=== PATIENT | female | born 1965 | race African-American/Black ===

== ENCOUNTER 2020-03-06 10:36 | Inpatient (IN) ==
[2020-03-06] MEDS ORDERED: MAGNESIUM SULF RIDER 2 GM in PREMIX 1 EACH IV ONE (13:20)
[2020-03-06] MEDS ORDERED: ALUMINUM/MAGNES/SIMETH MAX STR 30 ML UDCUP PO PRN (13:21)
[2020-03-06] MEDS ORDERED: SIMETHICONE CHEW 125 MG TABLET PO PRN (13:21)
[2020-03-06] MEDS ORDERED: ONDANSETRON 4 MG/2 ML VIAL IV PRN (13:21)
[2020-03-06] MEDS ORDERED: GLUCAGON 1 MG VIAL IM PRN (13:21)
[2020-03-06] MEDS ORDERED: DEXTROSE 10% 250 ML BAG IV PRN (13:21)
[2020-03-06] MEDS: SODIUM CHLORIDE 0.9% 1,000 ML IV SCH ×2 (13:32→23:36)
[2020-03-06] MEDS ORDERED: LOSARTAN 50 MG TABLET PO SCH (14:00)
[2020-03-06] MEDS ORDERED: MAGNESIUM SULF RIDER 4 GM in PREMIX 1 EACH IV PRN (15:16)
[2020-03-06] MEDS: carvediloL 3.125 MG TABLET PO SCH ×2 (15:58→20:48)
[2020-03-06] MEDS: ENOXAPARIN 100 MG/ML SYRINGE SUBCUT SCH (15:58)
[2020-03-06] MEDS: HYDROXYCHLOROQUINE 200 MG TABLET PO SCH (15:58)
[2020-03-06] MEDS: INSULIN LISPRO 100 UNIT/ML SUBCUT SCH ×2 (16:00→20:39)
[2020-03-06] MEDS ORDERED: LOSARTAN 50 MG TABLET PO ONE (16:00)
[2020-03-06 16:27] LABS: Calcium 8.2 MG/DL (8.5-10.1)
[2020-03-06 16:31] LABS: CKMB % 2.7 %
[2020-03-06 16:36] LABS: Troponin I 8.88 NG/ML (0.00-0.045)
[2020-03-06] MEDS: traMADol 50 MG TABLET PO SCH ×2 (17:01→23:39)
[2020-03-06] MEDS: ROSUVASTATIN 20 MG TABLET PO SCH (20:49)
[2020-03-06] MEDS ORDERED: ENOXAPARIN 40 MG/0.4 ML SYRINGE SUBCUT SCH (21:00)
[2020-03-06] MEDS ORDERED: ROSUVASTATIN 20 MG TABLET PO SCH (21:00)
[2020-03-07 05:28] LABS: Basophils % 0.6 % (0.0-0.8); Eosinophils # 0.1 10*3/uL (0.0-0.87); Eosinophils % 1.9 % (0.00-10.9); Hematocrit 42.4 VOL% (35.7-47.0); Immature Granulocytes % 0.4 %; Immature Granulocytes Absolute 0.03 #; Lymphocytes # 2.3 10*3/uL (1.4-4.0); Lymphocytes % 33.9 % (21.3-54.2); Mean Platelet Volume 9.3 FL (9.6-12.0); Monocytes % 10.3 % (1.7-12.7); Neutrophils % 52.9 % (38.7-73.9); Platelet Count 302 T/CUMM (130-400); Red Blood Count 4.71 MC/CUMM (3.8-5.5); Red Cell Distribution Width 12.4 % (9.3-17.3); White Blood Count 6.9 T/CUMM (4-12)
[2020-03-07 05:57] LABS: Albumin 2.2 G/DL (3.4-5.0); Bilirubin,Total 0.6 MG/DL (0.2-1.0); Calcium 8.4 MG/DL (8.5-10.1); Osmolality,Calculated 277.8 MOS/KG (273-304); Total Protein 6.5 G/DL (6.4-8.3)
[2020-03-07] MEDS: traMADol 50 MG TABLET PO SCH ×3 (05:57→18:50)
[2020-03-07 06:11] LABS: Risk Ratio 7.38; VLDL CHOLESTEROL 35.6 MG/DL
[2020-03-07] MEDS ORDERED: SODIUM CHLORIDE 0.9% 1,000 ML IV PRN (07:20)
[2020-03-07] MEDS ORDERED: INSULIN DETEMIR 100 UNIT/ML SUBCUT SCH (08:00)
[2020-03-07] MEDS: POTASSIUM CHLORIDE 20 MEQ TABLET PO PRN (09:00)
[2020-03-07] MEDS: SODIUM CHLORIDE 0.9% 1,000 ML IV SCH (09:31)
[2020-03-07] MEDS: INSULIN GLARGINE 100 UNIT/ML SUBCUT SCH (09:40)
[2020-03-07] MEDS: ASPIRIN EC 81 MG TABLET PO SCH (09:40)
[2020-03-07] MEDS: INSULIN LISPRO 100 UNIT/ML SUBCUT SCH ×4 (09:40→21:29)
[2020-03-07] MEDS: PANTOPRAZOLE 40 MG TABLET PO SCH (09:41)
[2020-03-07] MEDS: LOSARTAN 50 MG TABLET PO SCH (09:41)
[2020-03-07] MEDS: carvediloL 3.125 MG TABLET PO SCH ×2 (09:41→21:12)
[2020-03-07] MEDS: HYDROXYCHLOROQUINE 200 MG TABLET PO SCH ×2 (09:41→21:12)
[2020-03-07] MEDS: ENOXAPARIN 100 MG/ML SYRINGE SUBCUT SCH ×2 (09:41→21:29)
[2020-03-07] MEDS ORDERED: NITROGLYCERIN SL 0.4 MG TABLET SL PRN (10:27)
[2020-03-07] MEDS ORDERED: carvediloL 3.125 MG TABLET PO ONE (10:28)
[2020-03-07] MEDS ORDERED: ACETAMINOPHEN 325 MG TABLET PO ONE (15:41)
[2020-03-07] MEDS ORDERED: diphenhydrAMINE CAP 25 MG CAPSULE PO ONE (15:42)
[2020-03-07] MEDS: ROSUVASTATIN 20 MG TABLET PO SCH (21:11)
[2020-03-08] MEDS: traMADol 50 MG TABLET PO SCH ×5 (00:20→23:59)
[2020-03-08] MEDS: SODIUM CHLORIDE 0.9% 1,000 ML IV SCH ×3 (06:20→17:01)
[2020-03-08 06:59] LABS: Basophils % 0.5 % (0.0-0.8); Eosinophils # 0.2 10*3/uL (0.0-0.87); Eosinophils % 2.6 % (0.00-10.9); Hematocrit 39.8 VOL% (35.7-47.0); Hemoglobin 12.8 GM/DL (12.0-16.0); Immature Granulocytes % 0.5 %; Immature Granulocytes Absolute 0.03 #; Lymphocytes # 2.2 10*3/uL (1.4-4.0); Lymphocytes % 38.5 % (21.3-54.2); Mean Corpuscular HGB Conc 32.2 GM/DL (32-36); Mean Corpuscular Volume 90.9 FL (87-102); Mean Platelet Volume 9.6 FL (9.6-12.0); Monocytes % 9.8 % (1.7-12.7); Neutrophils % 48.1 % (38.7-73.9); Platelet Count 313 T/CUMM (130-400); Red Blood Count 4.38 MC/CUMM (3.8-5.5); Red Cell Distribution Width 12.4 % (9.3-17.3); White Blood Count 5.7 T/CUMM (4-12)
[2020-03-08 07:39] LABS: Albumin 2.2 G/DL (3.4-5.0); Bilirubin,Total 0.7 MG/DL (0.2-1.0); Calcium 8.3 MG/DL (8.5-10.1); Osmolality,Calculated 279.5 MOS/KG (273-304); Total Protein 6.2 G/DL (6.4-8.3)
[2020-03-08] MEDS: PANTOPRAZOLE 40 MG TABLET PO SCH (08:26)
[2020-03-08] MEDS: HYDROXYCHLOROQUINE 200 MG TABLET PO SCH ×2 (08:26→20:43)
[2020-03-08] MEDS: LOSARTAN 50 MG TABLET PO SCH (08:27)
[2020-03-08] MEDS: carvediloL 3.125 MG TABLET PO SCH ×2 (08:27→20:43)
[2020-03-08] MEDS: ASPIRIN EC 81 MG TABLET PO SCH (08:27)
[2020-03-08] MEDS: ENOXAPARIN 100 MG/ML SYRINGE SUBCUT SCH ×2 (09:40→20:43)
[2020-03-08 11:42] LABS: Ferritin 165.8 ng/ml (8-252)
[2020-03-08] MEDS: INSULIN LISPRO 100 UNIT/ML SUBCUT SCH ×3 (14:10→21:08)
[2020-03-08] MEDS: INSULIN GLARGINE 100 UNIT/ML SUBCUT SCH (14:11)
[2020-03-08] MEDS: ROSUVASTATIN 20 MG TABLET PO SCH (20:43)
[2020-03-08] MEDS: POTASSIUM CHLORIDE 20 MEQ TABLET PO PRN (20:43)
[2020-03-08] MEDS: hydrALAZINE 20 MG/1 ML VIAL IV PRN (23:59)
[2020-03-09] MEDS: SODIUM CHLORIDE 0.9% 1,000 ML IV SCH (02:14)
[2020-03-09] MEDS: traMADol 50 MG TABLET PO SCH ×3 (06:01→17:19)
[2020-03-09 06:25] LABS: Calcium 8.1 MG/DL (8.5-10.1); Osmolality,Calculated 277.4 MOS/KG (273-304)
[2020-03-09] MEDS ORDERED: LOSARTAN 50 MG TABLET PO SCH ×2 (07:29→11:23)
[2020-03-09] MEDS: POTASSIUM CHLORIDE 20 MEQ TABLET PO PRN ×3 (08:49→16:49)
[2020-03-09] MEDS: ASPIRIN EC 81 MG TABLET PO SCH (08:49)
[2020-03-09] MEDS: MAGNESIUM SULF RIDER 2 GM in PREMIX 1 EACH IV PRN (08:49)
[2020-03-09] MEDS: ENOXAPARIN 100 MG/ML SYRINGE SUBCUT SCH ×2 (08:49→21:08)
[2020-03-09] MEDS: carvediloL 3.125 MG TABLET PO SCH ×2 (08:49→21:08)
[2020-03-09] MEDS: PANTOPRAZOLE 40 MG TABLET PO SCH (08:49)
[2020-03-09] MEDS: HYDROXYCHLOROQUINE 200 MG TABLET PO SCH ×2 (08:49→21:05)
[2020-03-09] MEDS: INSULIN GLARGINE 100 UNIT/ML SUBCUT SCH (09:11)
[2020-03-09] MEDS: INSULIN LISPRO 100 UNIT/ML SUBCUT SCH ×4 (09:11→20:57)
[2020-03-09] MEDS ORDERED: LOSARTAN 25 MG TABLET PO ONE (11:24)
[2020-03-09] MEDS: hydrALAZINE 20 MG/1 ML VIAL IV PRN ×2 (11:24→16:24)
[2020-03-09] MEDS ORDERED: MORPHINE 4 MG/1 ML VIAL IV PRN (13:32)
[2020-03-09] MEDS ORDERED: ALUM/MAG/SIMETH/LIDO VISC 1:1 30 ML BOTTLE PO ONE (13:39)
[2020-03-09] MEDS: amLODIPine 5 MG TABLET PO SCH (14:05)
[2020-03-09] MEDS ORDERED: diphenhydrAMINE CAP 25 MG CAPSULE PO PRN (14:08)
[2020-03-09] MEDS: NITROGLYCERIN 2% OINT 1 INCH/GM PACK TOP SCH (17:18)
[2020-03-09] MEDS: ROSUVASTATIN 20 MG TABLET PO SCH (21:07)
[2020-03-10] MEDS: NITROGLYCERIN 2% OINT 1 INCH/GM PACK TOP SCH ×4 (00:11→17:00)
[2020-03-10] MEDS: traMADol 50 MG TABLET PO SCH ×4 (00:11→17:00)
[2020-03-10 06:58] LABS: Basophils % 0.7 % (0.0-0.8); Eosinophils # 0.1 10*3/uL (0.0-0.87); Eosinophils % 1.9 % (0.00-10.9); Hematocrit 42.6 VOL% (35.7-47.0); Immature Granulocytes % 0.3 %; Immature Granulocytes Absolute 0.02 #; Lymphocytes # 2.3 10*3/uL (1.4-4.0); Lymphocytes % 38.6 % (21.3-54.2); Mean Corpuscular HGB Conc 32.9 GM/DL (32-36); Mean Corpuscular Volume 89.7 FL (87-102); Mean Platelet Volume 9.6 FL (9.6-12.0); Monocytes % 9.6 % (1.7-12.7); Neutrophils % 48.9 % (38.7-73.9); Platelet Count 364 T/CUMM (130-400); Red Blood Count 4.75 MC/CUMM (3.8-5.5); Red Cell Distribution Width 12.1 % (9.3-17.3); White Blood Count 5.9 T/CUMM (4-12)
[2020-03-10 07:12] LABS: Calcium 8.1 MG/DL (8.5-10.1)
[2020-03-10] MEDS: INSULIN LISPRO 100 UNIT/ML SUBCUT SCH ×5 (08:43→23:30)
[2020-03-10] MEDS ORDERED: ENOXAPARIN 100 MG/ML SYRINGE SUBCUT SCH (09:00)
[2020-03-10] MEDS: INSULIN GLARGINE 100 UNIT/ML SUBCUT SCH (09:35)
[2020-03-10] MEDS: ASPIRIN EC 81 MG TABLET PO SCH (09:36)
[2020-03-10] MEDS: LOSARTAN 50 MG TABLET PO SCH (09:37)
[2020-03-10] MEDS: amLODIPine 5 MG TABLET PO SCH (09:37)
[2020-03-10] MEDS: TICAGRELOR 90 MG TABLET PO SCH ×2 (09:37→20:14)
[2020-03-10] MEDS: carvediloL 3.125 MG TABLET PO SCH ×2 (09:37→20:18)
[2020-03-10] MEDS: ENOXAPARIN 120 MG/0.8 ML SYRINGE SUBCUT SCH ×2 (09:37→23:24)
[2020-03-10] MEDS: PANTOPRAZOLE 40 MG TABLET PO SCH (09:38)
[2020-03-10] MEDS: POTASSIUM CHLORIDE 20 MEQ TABLET PO PRN (09:38)
[2020-03-10] MEDS: HYDROXYCHLOROQUINE 200 MG TABLET PO SCH ×2 (09:38→20:18)
[2020-03-10] MEDS: ROSUVASTATIN 20 MG TABLET PO SCH (20:18)
[2020-03-10] MEDS: TEMAZEPAM 15 MG CAPSULE PO PRN (22:11)
[2020-03-11] MEDS: traMADol 50 MG TABLET PO SCH ×4 (00:08→17:24)
[2020-03-11] MEDS: NITROGLYCERIN 2% OINT 1 INCH/GM PACK TOP SCH ×4 (00:37→17:24)
[2020-03-11 07:28] LABS: Basophils # 0.1 10*3/uL (0.0-0.2); Basophils % 0.8 % (0.0-0.8); Eosinophils # 0.1 10*3/uL (0.0-0.87); Eosinophils % 1.5 % (0.00-10.9); Hemoglobin 13.9 GM/DL (12.0-16.0); Immature Granulocytes % 0.6 %; Immature Granulocytes Absolute 0.04 #; Lymphocytes # 2.8 10*3/uL (1.4-4.0); Lymphocytes % 42.3 % (21.3-54.2); Mean Corpuscular HGB Conc 32.3 GM/DL (32-36); Mean Corpuscular Volume 90.5 FL (87-102); Mean Platelet Volume 9.4 FL (9.6-12.0); Monocytes % 9.2 % (1.7-12.7); Neutrophils % 45.6 % (38.7-73.9); Platelet Count 364 T/CUMM (130-400); Red Blood Count 4.75 MC/CUMM (3.8-5.5); Red Cell Distribution Width 12.1 % (9.3-17.3); White Blood Count 6.6 T/CUMM (4-12)
[2020-03-11] MEDS ORDERED: POTASSIUM CHLORIDE RIDER 10 MEQ in PREMIX 1 EACH IV PRN (08:04)
[2020-03-11 08:05] LABS: Calcium 8.3 MG/DL (8.5-10.1); Osmolality,Calculated 272.1 MOS/KG (273-304)
[2020-03-11] MEDS: INSULIN LISPRO 100 UNIT/ML SUBCUT SCH ×4 (09:45→21:21)
[2020-03-11] MEDS: amLODIPine 5 MG TABLET PO SCH (09:46)
[2020-03-11] MEDS: HYDROXYCHLOROQUINE 200 MG TABLET PO SCH (09:46)
[2020-03-11] MEDS: ENOXAPARIN 120 MG/0.8 ML SYRINGE SUBCUT SCH ×2 (09:46→21:21)
[2020-03-11] MEDS: LOSARTAN 50 MG TABLET PO SCH (09:46)
[2020-03-11] MEDS: ASPIRIN EC 81 MG TABLET PO SCH (09:46)
[2020-03-11] MEDS: carvediloL 3.125 MG TABLET PO SCH ×2 (09:46→21:22)
[2020-03-11] MEDS: TICAGRELOR 90 MG TABLET PO SCH ×2 (09:46→21:22)
[2020-03-11] MEDS: INSULIN GLARGINE 100 UNIT/ML SUBCUT SCH (09:46)
[2020-03-11] MEDS: TEMAZEPAM 15 MG CAPSULE PO PRN (21:22)
[2020-03-11] MEDS: ROSUVASTATIN 20 MG TABLET PO SCH (21:22)
[2020-03-12] MEDS: NITROGLYCERIN 2% OINT 1 INCH/GM PACK TOP SCH ×4 (00:15→17:29)
[2020-03-12] MEDS: traMADol 50 MG TABLET PO SCH ×4 (00:15→17:29)
[2020-03-12 05:42] LABS: Basophils # 0.1 10*3/uL (0.0-0.2); Basophils % 0.7 % (0.0-0.8); Eosinophils # 0.1 10*3/uL (0.0-0.87); Eosinophils % 1.8 % (0.00-10.9); Hematocrit 42.4 VOL% (35.7-47.0); Hemoglobin 14.2 GM/DL (12.0-16.0); Immature Granulocytes % 0.4 %; Immature Granulocytes Absolute 0.03 #; Lymphocytes # 2.9 10*3/uL (1.4-4.0); Lymphocytes % 42.5 % (21.3-54.2); Mean Corpuscular HGB Conc 33.5 GM/DL (32-36); Mean Corpuscular Volume 88.7 FL (87-102); Mean Platelet Volume 9.4 FL (9.6-12.0); Monocytes % 10.4 % (1.7-12.7); Neutrophils % 44.2 % (38.7-73.9); Platelet Count 354 T/CUMM (130-400); Red Blood Count 4.78 MC/CUMM (3.8-5.5); White Blood Count 6.8 T/CUMM (4-12)
[2020-03-12 05:59] LABS: Calcium 8.7 MG/DL (8.5-10.1)
[2020-03-12] MEDS ORDERED: SODIUM CHLORIDE 0.45% 1,000 ML IV SCH (09:00)
[2020-03-12] MEDS: ASPIRIN EC 81 MG TABLET PO SCH (09:45)
[2020-03-12] MEDS: carvediloL 3.125 MG TABLET PO SCH ×2 (09:45→21:15)
[2020-03-12] MEDS: TICAGRELOR 90 MG TABLET PO SCH ×2 (09:45→21:15)
[2020-03-12] MEDS: ENOXAPARIN 120 MG/0.8 ML SYRINGE SUBCUT SCH (09:45)
[2020-03-12] MEDS: INSULIN LISPRO 100 UNIT/ML SUBCUT SCH ×4 (09:45→22:33)
[2020-03-12] MEDS: MAGNESIUM SULF RIDER 2 GM in PREMIX 1 EACH IV PRN (09:45)
[2020-03-12] MEDS: INSULIN GLARGINE 100 UNIT/ML SUBCUT SCH (09:45)
[2020-03-12] MEDS: LOSARTAN 50 MG TABLET PO SCH (09:45)
[2020-03-12] MEDS: amLODIPine 5 MG TABLET PO SCH (09:45)
[2020-03-12] MEDS ORDERED: diphenhydrAMINE CAP 25 MG CAPSULE PO ONE (12:01)
[2020-03-12] MEDS ORDERED: DIAZEPAM 5 MG TABLET PO ONE (12:01)
[2020-03-12] MEDS ORDERED: HEPARIN/NACL 0.9% 2 UNITS/ML 1,000 ML IV ONE (15:49)
[2020-03-12] MEDS ORDERED: MIDAZOLAM 2 MG/2 ML VIAL ONE (15:49)
[2020-03-12] MEDS ORDERED: LIDOCAINE 1%/EPI INJ 20 ML VIAL ONE (15:49)
[2020-03-12] MEDS ORDERED: fentaNYL 100 MCG/2 ML VIAL ONE (15:50)
[2020-03-12] MEDS ORDERED: ceFAZolin 1,000 MG VIAL ONE (17:04)
[2020-03-12] MEDS ORDERED: cloNIDine 0.1 MG TABLET PO PRN (17:36)
[2020-03-12] MEDS: ROSUVASTATIN 20 MG TABLET PO SCH (21:15)
[2020-03-13] MEDS: NITROGLYCERIN 2% OINT 1 INCH/GM PACK TOP SCH ×2 (06:51→06:52)
[2020-03-13] MEDS: traMADol 50 MG TABLET PO SCH ×3 (06:51→11:20)
[2020-03-13 08:00] LABS: Basophils # 0.1 10*3/uL (0.0-0.2); Basophils % 0.7 % (0.0-0.8); Eosinophils # 0.1 10*3/uL (0.0-0.87); Eosinophils % 1.7 % (0.00-10.9); Hematocrit 43.2 VOL% (35.7-47.0); Hemoglobin 14.2 GM/DL (12.0-16.0); Immature Granulocytes % 0.4 %; Immature Granulocytes Absolute 0.03 #; Lymphocytes # 2.1 10*3/uL (1.4-4.0); Lymphocytes % 29.7 % (21.3-54.2); Mean Corpuscular HGB Conc 32.9 GM/DL (32-36); Mean Corpuscular Volume 89.1 FL (87-102); Mean Platelet Volume 9.5 FL (9.6-12.0); Monocytes % 10.9 % (1.7-12.7); Neutrophils % 56.6 % (38.7-73.9); Platelet Count 376 T/CUMM (130-400); Red Blood Count 4.85 MC/CUMM (3.8-5.5); Red Cell Distribution Width 12.1 % (9.3-17.3); White Blood Count 7.2 T/CUMM (4-12)
[2020-03-13 08:18] LABS: Calcium 8.9 MG/DL (8.5-10.1); Osmolality,Calculated 275.2 MOS/KG (273-304)
[2020-03-13] MEDS: TICAGRELOR 90 MG TABLET PO SCH (08:51)
[2020-03-13] MEDS: carvediloL 3.125 MG TABLET PO SCH (08:51)
[2020-03-13] MEDS: INSULIN LISPRO 100 UNIT/ML SUBCUT SCH ×2 (08:51→11:27)
[2020-03-13] MEDS: ASPIRIN EC 81 MG TABLET PO SCH (08:51)
[2020-03-13] MEDS: INSULIN GLARGINE 100 UNIT/ML SUBCUT SCH (08:51)
[2020-03-13] MEDS: LOSARTAN 50 MG TABLET PO SCH (08:51)
[2020-03-13] MEDS ORDERED: ENOXAPARIN 40 MG/0.4 ML SYRINGE SUBCUT SCH (09:00)
[2020-03-13] MEDS ORDERED: SEMAGLUTIDE 1 MG SUBCUT SCH (09:00)
[2020-03-13] MEDS ORDERED: amLODIPine 5 MG TABLET PO SCH (10:00)
[2020-03-13 11:45] VITALS: BP 150/84
== END 2020-03-13 13:38 | disposition home or self-care (01) | DRG 177 ==
LOC: SUATTDRO 12:31 → N.CC 12:31 → SUPCPDRO 12:31 → N.2W 03-07 12:39
PROVIDERS: ADMIT Internal Medicine; ATTEND Internal Medicine
PROC: CLCCHCL (ICD-10-PCS; 2020-03-12 16:45)